=== PATIENT | female | born 1980 ===

== ENCOUNTER 2021-08-06 23:30 | Emergency (ER) | payer MEDICAID ==
[2021-08-07 00:13] VITALS: BP 119/77
--- NOTE | 2021-08-07 00:35 | Emergency Department Report ---
ED General Adult HPI - General Chief complaint: Fever Stated complaint: THROAT PAIN/BODY ACHES/CHILLS/LIGHT HEADED Time Seen by Provider: 08/07/21 00:21 Source: patient Mode of arrival: Ambulatory Limitations: No Limitations - History of Present Illness Initial comments: Patient 41-year-old female with history of asthma and bronchitis who presents with sore throat and aching rated at 7/10 for 1 week. Patient denies fever however endorses malaise and chills. Patient does have history of recurrent strep throat. Other symptoms include dysphagia, copious clear postnasal drip, and sore throat. Symptoms are exacerbated by swallowing. Symptoms are relieved by nothing tried. No history of peritonsillar abscess. Severity scale (0 -10): 7 - Related Data Previous Rx's Medication Instructions Recorded Last Taken Type Amoxicillin/Potassium Clav 1 each PO BID 7 Days #14 tablet 08/07/21 Unknown Rx [Augmentin 875-125 Tablet] RX: Ibuprofen [Motrin 800 MG tab] 800 mg PO Q8HR PRN #30 tablet 08/07/21 Unknown Rx RX: predniSONE [Deltasone] 40 mg PO QDAY 5 Days #10 tab 08/07/21 Unknown Rx Allergies Allergy/AdvReac Type Severity Reaction Status Date / Time No Known Allergies Allergy Unverified 08/07/21 00:48 ED Review of Systems ROS: Stated complaint: THROAT PAIN/BODY ACHES/CHILLS/LIGHT HEADED Other details as noted in HPI Constitutional: chills, malaise Eyes: denies: eye pain, eye discharge, vision change ENT: throat pain, congestion Respiratory: cough Cardiovascular: denies: chest pain, palpitations Endocrine: no symptoms reported Gastrointestinal: denies: abdominal pain, vomiting, diarrhea Genitourinary: denies: urgency, dysuria, discharge Musculoskeletal: denies: back pain, joint swelling, arthralgia Skin: denies: rash, lesions Neurological: headache, vertigo Psychiatric: denies: anxiety, depression Hematological/Lymphatic: denies: easy bleeding, easy bruising ED Past Medical Hx - Past Medical History Previous Medical History?: No - Surgical History Past Surgical History?: No - Medications Home Medications: Home Medications Medication Instructions Recorded Confirmed Last Taken Type Amoxicillin/Potassium Clav 1 each PO BID 7 Days #14 tablet 08/07/21 Unknown Rx [Augmentin 875-125 Tablet] RX: Ibuprofen [Motrin 800 MG tab] 800 mg PO Q8HR PRN #30 tablet 08/07/21 Unknown Rx RX: predniSONE [Deltasone] 40 mg PO QDAY 5 Days #10 tab 08/07/21 Unknown Rx ED Physical Exam - General Limitations: No Limitations General appearance: alert, in no apparent distress - Head Head exam: Present: atraumatic, normocephalic - Eye Eye exam: Present: normal appearance, PERRL, EOMI Pupils: Present: normal accommodation - ENT ENT exam: Present: mucous membranes moist, normal external ear exam - Expanded ENT Exam Expanded Ear exam: Present: normal external inspection Mouth exam: Present: normal external inspection Throat exam: Positive: tonsillar erythema, tonsillomegaly, tonsillar exudate - Neck Neck exam: Present: normal inspection, tenderness, full ROM, lymphadenopathy - Respiratory Respiratory exam: Present: normal lung sounds bilaterally, chest wall tenderness . Absent: respiratory distress, wheezes, rhonchi, stridor (anterior chest wall ) - Cardiovascular Cardiovascular Exam: Present: regular rate, normal rhythm, normal heart sounds. Absent: systolic murmur, diastolic murmur, rubs, gallop - GI/Abdominal GI/Abdominal exam: Present: soft, distended, tenderness, normal bowel sounds. Absent: guarding, rebound, rigid, bruit, hernia - Extremities Exam Extremities exam: Present: normal inspection, full ROM. Absent: tenderness - Back Exam Back exam: Present: normal inspection, full ROM. Absent: CVA tenderness (R), CVA tenderness (L) - Neurological Exam Neurological exam: Present: alert, oriented X3, CN II-XII intact, normal gait, reflexes normal - Psychiatric Psychiatric exam: Present: normal affect, normal mood - Skin Skin exam: Present: warm, dry, intact, normal color. Absent: rash ED Course Vital Signs 08/07/21 00:12 Temperature 98.4 F Pulse Rate 125 H Respiratory 18 Rate Blood Pressure 119/77 [Left] O2 Sat by Pulse 98 Oximetry ED Medical Decision Making - EKG Data -: EKG Interpreted by Me EKG shows normal: sinus rhythm, axis, intervals Rate: normal - Radiology Data Radiology results: report reviewed Bilateral tonsils noted with exudate strep test was negative however pain is much improved with medications given in ED plan DC to home oral antibiotics, prednisone, NSAIDs as needed. Patient will follow-up primary care doctor in 2 to 3 days patient will return to school after completing quarantine protocol. Patient and parents verbalized agreement and understanding with same. Patient DC'd home in stable condition at this time - Medical Decision Making Straightforward pharyngitis with exudate. Treat with antibiotics oral, follow- up with primary care doctor in 2 to 3 days return to emergency department should symptoms worsen. Critical care attestation.: If time is entered above; I have spent that time in minutes in the direct care of this critically ill patient, excluding procedure time. ED Disposition Clinical Impression: Pharyngitis Qualifiers: Pharyngitis/tonsillitis etiology: unspecified etiology Qualified Code(s): J02.9 - Acute pharyngitis, unspecified Disposition: HOME / SELF CARE / HOMELESS Is pt being admited?: No Does the pt Need Aspirin: No Condition: Stable Instructions: Pharyngitis, [id number] Additional Instructions: take medications as prescribed , return to [facility] if symptoms worsen. Prescriptions: Amoxicillin/Potassium Clav [Augmentin 875-125 Tablet] 1 each PO BID 7 Days #14 tablet RX: predniSONE [Deltasone] 40 mg PO QDAY 5 Days #10 tab RX: Ibuprofen [Motrin 800 MG tab] 800 mg PO Q8HR PRN #30 tablet PRN Reason: pain Referrals: GASPER VALDERRAMA MD [Staff Physician] - 3-5 Days Forms: Work/School Release Form(ED) Time of Disposition: 03:36
[2021-08-07] MEDS ORDERED: IBUPROFEN 800 MG TAB ONE (00:55)
[2021-08-07] MEDS: SODIUM CHLORIDE 0.9% 1000 ML 1,000 ML IV ONE (00:56)
[2021-08-07] MEDS: dexAMETHasone 20 MG/5 ML VIAL IV ONE (00:57)
[2021-08-07] MEDS: IBUPROFEN ORAL LIQD 100 MG/5 ML ORAL.LIQD PO ONE (00:57)
== END 2021-08-07 04:38 | disposition home or self-care (01) ==
LOC: ED 23:30
DX: J02.9 Acute pharyngitis, unspecified (principal)
CPT/HCPCS: 87116; 87430; 96365; 96375; 99283; J1100; J7030; 96361

== ENCOUNTER 2021-11-09 07:11 | Emergency (ER) | payer MEDICAID ==
[2021-11-09] MEDS ORDERED: dexAMETHasone 20 MG/5 ML VIAL IM ONE (07:44)
[2021-11-09] MEDS ORDERED: KETOROLAC 10 MG TAB PO ONE (07:44)
--- NOTE | 2021-11-09 07:46 | Emergency Department Report ---
ED ENT HPI - General Chief complaint: Sore Throat Stated complaint: SORE THROAT Time Seen by Provider: 11/09/21 07:34 Source: patient Mode of arrival: Ambulatory Limitations: No Limitations - History of Present Illness Initial comments: 41-year-old -Turk[place] female with a past medical history of asthma presents to the ER today with complaints of sore throat. Onset of symptoms 7 days ago. She reports difficulty swallowing due to the pain. She has no trismus or drooling. She reports associated fever, the highest she has had is 104, headache and a mild cough and decreased appetite. She reports no wheezing, chest pain, shortness of breath, GI or symptoms. She has been taking Aleve without much relief of her pain. She denies any apparent ill contacts. She denies any travel. She has not had a COVID test since her symptoms started. She has not gotten any of the COVID-19 vaccines. MD complaint: sore throat -: Gradual, days(s) (7) - Related Data Previous Rx's Medication Instructions Recorded Last Taken Type Amoxicillin/Potassium Clav 1 each PO BID 7 Days #14 tablet 11/09/21 Unknown Rx [Augmentin 875-125 Tablet] Ketorolac [Toradol] 10 mg PO Q6H PRN #20 tab 11/09/21 Unknown Rx Lidocaine 2% Uroject [Xylocaine 2% 5 - 10 ml PO Q6HR PRN #10 tube 11/09/21 Unknown Rx Urojet] dexAMETHasone [Decadron] 4 mg PO Q12H #10 tablet 11/09/21 Unknown Rx Allergies Allergy/AdvReac Type Severity Reaction Status Date / Time No Known Allergies Allergy Verified 11/09/21 07:25 ED Dental HPI - General Chief complaint: Sore Throat Stated complaint: SORE THROAT Time Seen by Provider: 11/09/21 07:34 Source: patient Mode of arrival: Ambulatory Limitations: No Limitations - Related Data Previous Rx's Medication Instructions Recorded Last Taken Type Amoxicillin/Potassium Clav 1 each PO BID 7 Days #14 tablet 11/09/21 Unknown Rx [Augmentin 875-125 Tablet] Ketorolac [Toradol] 10 mg PO Q6H PRN #20 tab 11/09/21 Unknown Rx Lidocaine 2% Uroject [Xylocaine 2% 5 - 10 ml PO Q6HR PRN #10 tube 11/09/21 Unknown Rx Urojet] dexAMETHasone [Decadron] 4 mg PO Q12H #10 tablet 11/09/21 Unknown Rx Allergies Allergy/AdvReac Type Severity Reaction Status Date / Time No Known Allergies Allergy Verified 11/09/21 07:25 ED Review of Systems ROS: Stated complaint: SORE THROAT Other details as noted in HPI Comment: All other systems reviewed and negative Constitutional: fever, other (Decreased appetite) ENT: throat pain Respiratory: cough Cardiovascular: denies: chest pain, palpitations Gastrointestinal: denies: abdominal pain, nausea, diarrhea Neurological: denies: headache, weakness, paresthesias Psychiatric: denies: anxiety, depression ED Past Medical Hx - Past Medical History Previous Medical History?: Yes Hx Asthma: Yes - Surgical History Hx Cholecystectomy: Yes - Medications Home Medications: Home Medications Medication Instructions Recorded Confirmed Last Taken Type Amoxicillin/Potassium Clav 1 each PO BID 7 Days #14 tablet 11/09/21 Unknown Rx [Augmentin 875-125 Tablet] Ketorolac [Toradol] 10 mg PO Q6H PRN #20 tab 11/09/21 Unknown Rx Lidocaine 2% Uroject [Xylocaine 2% 5 - 10 ml PO Q6HR PRN #10 tube 11/09/21 Unknown Rx Urojet] dexAMETHasone [Decadron] 4 mg PO Q12H #10 tablet 11/09/21 Unknown Rx ED Physical Exam - General Limitations: No Limitations General appearance: alert, in no apparent distress - Head Head exam: Present: atraumatic, normocephalic, normal inspection - Eye Eye exam: Present: normal appearance, PERRL, EOMI Pupils: Present: normal accommodation - ENT ENT exam: Present: mucous membranes moist - Expanded ENT Exam Expanded TM/Canal exam: Effusion: Right TM, Left TM Mouth exam: Present: normal external inspection Throat exam: Positive: tonsillar erythema, tonsillomegaly, tonsillar exudate (mainly left tonsil ). Negative: R peritonsillar mass, L peritonsillar mass - Neck Neck exam: Present: normal inspection, full ROM, lymphadenopathy (mildly prominent left anterior cervical lymph node without any apparent associated cellulitis), other (No tracheal deviation. Airway is intact.). Absent: tenderness - Respiratory Respiratory exam: Present: normal lung sounds bilaterally. Absent: respiratory distress, wheezes, rales, rhonchi, chest wall tenderness - Cardiovascular Cardiovascular Exam: Present: regular rate, normal rhythm, normal heart sounds - Neurological Exam Neurological exam: Present: alert, oriented X3, CN II-XII intact, normal gait - Psychiatric Psychiatric exam: Present: normal affect, normal mood - Skin Skin exam: Present: intact ED Course Vital Signs 11/09/21 07:30 Temperature 99.0 F Pulse Rate 96 H Respiratory 20 Rate Blood Pressure 135/93 O2 Sat by Pulse 95 Oximetry ED Medical Decision Making - Medical Decision Making 0827 ; rapid strep is negative but I am still concerned for possible bacterial infection/strep infection given patient's physical findings. This time she does not have any findings concerning for peritonsillar abscess, retropharyngeal abscess or Rosi's angina. She is currently tolerating her secretions well without any trismus or drooling and she has no stridor or difficulty breathing on exam. She is not toxic or ill-appearing and she appears hydrated. Vital signs were reviewed and are stable. Discussed lab results with patient. Discussed suspected diagnosis and treatment plan with patient. She expressed understanding of all instructions and agree with plan. Patient stable at time of discharge. Critical care attestation.: If time is entered above; I have spent that time in minutes in the direct care of this critically ill patient, excluding procedure time. ED Disposition Clinical Impression: Exudative tonsillitis Disposition: HOME / SELF CARE / HOMELESS Is pt being admited?: No Does the pt Need Aspirin: No Condition: Stable Instructions: Tonsillitis, [id number] Additional Instructions: Take the augmentin, the decadron and the toradol as prescribed. You can use the viscous lidocaine to also help with pain and take as prescribed. I encourage you to drink lots of fluids. Follow up with your PCP and or ENT if your symptoms persist. Return to ED if worse. Prescriptions: Amoxicillin/Potassium Clav [Augmentin 875-125 Tablet] 1 each PO BID 7 Days #14 tablet dexAMETHasone [Decadron] 4 mg PO Q12H #10 tablet Ketorolac [Toradol] 10 mg PO Q6H PRN #20 tab PRN Reason: Pain Lidocaine 2% Uroject [Xylocaine 2% Urojet] 5 - 10 ml PO Q6HR PRN #10 tube PRN Reason: pain Referrals: LATA CLARK MD [Staff Physician] - 3-5 Days Forms: Work/School Release Form(ED) Time of Disposition: 08:17
[2021-11-09 08:35] VITALS: BP 129/77
== END 2021-11-09 08:35 | disposition home or self-care (01) ==
LOC: ED 07:11
DX: J03.90 Acute tonsillitis, unspecified (principal); J45.909 Unspecified asthma, uncomplicated; Z90.49 Acquired absence of other specified parts of digestive tract
CPT/HCPCS: 87116; 87430; 96372; 99283; J1100